=== PATIENT | male | born 1980 | race Native Hawaiian/Other Pacific Islander ===

== ENCOUNTER 2019-05-24 03:33 | Emergency (ER) | payer OTHER ==
[~2019-05-24] VITALS: Ht 180.3 cm; Wt 106.6 kg
[2019-05-24 03:33] VITALS: TEMP 98.9
[~2019-05-24 03:33] MED LIST: CYCL10TA35 PO
[2019-05-24 04:12] LABS: PLATELET COUNT 249 K/uL (142-355)
[2019-05-24 04:50] LABS: POTASSIUM 3.9 mmol/L (3.6-5.2); SODIUM 139 mmol/L (136-145)
[2019-05-24 07:40] VITALS: BP 138/89
== END 2019-05-24 07:40 | disposition home or self-care (01) ==
LOC: ED 03:33
PROVIDERS: Emergency Medicine
DX: R10.13 Epigastric pain (principal); K21.9 Gastro-esophageal reflux disease without esophagitis; R00.1 Bradycardia, unspecified
CPT/HCPCS: 36415; 80053; 80307; 81000; 82150; 82550; 82553; 83690; 84484; 85027; 93005; 96374; 99284; J1885; Q9963